=== PATIENT | female | born 1970 | race Caucasian/White ===

== ENCOUNTER 2023-01-06 10:27 | Outpatient (OUT) | payer MEDICAID, SELFPAY ==
--- NOTE | 2023-01-06 10:38 | XR_ITS ---
The [address] [address] Patient Name: REMI CARMICHAEL MRN: [id number] date: 1970 Sex: F Assigned Patient Location: RAD Current Patient Location: RAD Accession/Order Number: [id number] Exam Date: 01/06/2023 10:48 Report Date: 01/06/2023 12:28 At the request of: MARY JACOBS Procedure: XR knee RT 3V PROCEDURE: XR knee RT 3V HISTORY: Acute pain of right knee M25.561 after falling COMPARISON: None. FINDINGS: BONES:Mild narrowing of the medial compartment. Small periarticular degenerative osteophytes involving the anterior and lateral compartments. No fracture, dislocation, or bone lesion. SOFT TISSUES:No visible soft tissue swelling. EFFUSION:None visible. OTHER: Negative. XR/XR knee RT 3V IMPRESSION: 1. No acute bone abnormality. 2. Mild degenerative joint disease. Electronically authenticated by: PAVITHRA ADAM Date: 01/06/2023 12:28
== END 2023-01-06 10:28 | disposition home or self-care (01) ==
LOC: LAB 10:32 → RAD 10:35
PROVIDERS: PCP Internal Medicine; Visit Provider Internal Medicine
DX: M25.561 Pain in right knee (principal)
CPT/HCPCS: 73562

== ENCOUNTER 2023-06-01 08:10 | Emergency (ER) | payer MEDICAID, SELFPAY ==
[2023-06-01 08:17] VITALS: BP 176/98; PULSE 80; RESP 18; TEMP 36.8; O2SAT 96; BMI 36.6
[2023-06-01] MEDS: PREDNISONE 20 MG TABLET 40 MG PO (08:47)
[2023-06-01] MEDS: IPRATROPIUM/ALBUTEROL SULFATE 3 ML AMPUL.NEB IH (08:50)
[2023-06-01 08:51] VITALS: PULSE 97; O2SAT 97
--- NOTE | 2023-06-01 09:01 | ED.GENADUL1 ---
HPI - General Adult General Chief complaint: Upper Respiratory Infection Stated complaint: URTI Time Seen by Provider: 06/01/23 08:15 Source: patient Mode of arrival: walk-in Limitations: no limitations History of Present Illness HPI narrative: The patient have past medical history of COPD coming to the ER with a 3 to 4-day history of runny nose associated with sore throat as well as cough and shortness of breath on exertion, the patient denies any chest pain nausea vomiting or any other complaint. She mentioned that she had been exposed to one of her family member that had similar symptoms and she came here because she works with the [employer] population and she did not go for the working for the last 2 days. The patient mentioned that she needs a work excuse. The patient does have a cough productive of whitish sputum no nausea no vomiting no fever no chills Related Data Previous Rx's Medication Instructions Recorded azithromycin 250 mg tablet See Rx Instructions PO .COMPLEX #6 06/01/23 (Zithromax Z-Efrem) tabs guaifenesin 600 mg tablet, 600 mg PO BID PRN cough #10 tabs 06/01/23 extended release 12 hr (Mucinex) prednisone 20 mg tablet 40 mg (2 x 20 mg) PO DAILY 5 days 06/01/23 #10 tabs Allergies Allergy/AdvReac Type Severity Reaction Status Date / Time No Known Drug Allergies Allergy Verified 06/01/23 08:17 Review of Systems ROS Status of ROS 10 or more systems reviewed and unremarkable except as noted in history and below PFSH PFS Social History Smoking status: Current every day smoker Exam Narrative Exam Narrative: Nurses notes and vital signs reviewed and patient is not hypoxic. General: Well-appearing and in no apparent distress. Skin: Warm, dry, no pallor noted. No rash. Head: Normocephalic, atraumatic. Neck: Supple, non-tender. Eye: Pupils are equal, round and EOMI. No scleral icterus. Ears, Nose, Mouth, and Throat: Tonsillar erythema noted in addition to congested nasal mucosa. uvula is mid-line Cardiovascular: Regular Rate and Rhythm without murmur, gallop or rub. Respiratory: No accessory muscle use or respiratory distress. Lungs diminished air entry bilaterally, distant breathing sounds Chest Wall: no tenderness Back: No midline thoracic or lumbar vertebral tenderness. No CVA tenderness Musculoskeletal: normal ROM, no calf or popliteal tenderness, no lower extremity edema/swelling GI: Abdomen is soft, non-distended. Normal bowel sounds. No masses appreciated. No tenderness to palpation. No rebound, guarding, or rigidity noted. Neurological: A&O x4. No cranial nerve dysfunction observed. No truncal ataxia. Moves all extremities. Sensation intact. Psychiatric: Cooperative and interactive. Normal mood and affect. Constitutional Vital Signs, click to edit/add: Last Vital Signs Temp 98.3 F 06/01/23 08:17 Pulse 97 H 06/01/23 08:51 Resp 18 06/01/23 08:17 BP 176/98 H 06/01/23 08:17 Pulse Ox 97 06/01/23 08:51 O2 Del Method Room Air 06/01/23 08:51 Course Vital Signs Vital signs: Vital Signs Temperature 98.3 F 06/01/23 08:17 Pulse Rate 80 06/01/23 08:17 Respiratory Rate 18 06/01/23 08:17 Blood Pressure 176/98 H 06/01/23 08:17 Pulse Oximetry 96 06/01/23 08:17 Oxygen Delivery Method Room Air 06/01/23 08:17 Temperature 98.3 F 06/01/23 08:17 Pulse Rate 97 H 06/01/23 08:51 Respiratory Rate 18 06/01/23 08:17 Blood Pressure 176/98 H 06/01/23 08:17 Pulse Oximetry 97 06/01/23 08:51 Oxygen Delivery Method Room Air 06/01/23 08:51 Medical Decision Making [facility] Narrative Medical decision making narrative: The patient presenting to us with a upper respiratory tract infection symptoms in addition to possible exacerbation of her COPD she did mention that she smokes 1 pack and a half of cigarettes daily and I did explain the harmful effect on her health. The patient will be treated with prednisone in addition to Mucinex and Z-Efrem for COPD exacerbation mostly secondary to viral infection. The patient is to follow up with primary care physician in next 2-3 days or to return to the emergency department should any of the signs or symptoms worsen or new symptoms develop. The patient agrees with the following Diagnosis and Treatment plan and the patient will be discharged home. Discharge Plan Discharge Chief Complaint: Upper Respiratory Infection Clinical Impression: COPD with exacerbation Patient Disposition: Home, Self-Care Time of Disposition Decision: 08:57 Condition: Good Mode of Transportation: Private Vehicle Prescriptions / Home Meds: New prednisone 20 mg tablet 40 mg PO DAILY 5 Days Qty: 10 0RF azithromycin [Zithromax Z-Efrem] 250 mg tablet See Rx Instructions .ROUTE .COMPLEX Qty: 6 0RF Rx Instructions: For 250 mg dose pack: take 500 mg today (day 1), then 250 mg for 4 days (days 2-5) guaifenesin [Mucinex] 600 mg tablet extended release 12hr 600 mg PO BID PRN (Reason: cough) Qty: 10 0RF Instructions: COPD (Chronic Obstructive Pulmonary Disease) (DC) Stand Alone Forms: Portal Instructions Referrals: MARY JACOBS [Primary Care Provider] - 1 week
== END 2023-06-01 09:26 | disposition home or self-care (01) ==
PROVIDERS: Emergency Provider Emergency Medicine; PCP Internal Medicine
DX: J44.1 Chronic obstructive pulmonary disease with (acute) exacerbation (principal); F17.210 Nicotine dependence, cigarettes, uncomplicated
CPT/HCPCS: 94640; 99283; J7512

== ENCOUNTER 2023-06-10 18:51 | Emergency (ER) | payer MEDICAID, SELFPAY ==
--- OUTSIDE RECORDS SUMMARY | 2023-06-10 18:55 | XMS_ITS | CCD ---
Author Name Unknown Address [address] [place] [address] Organization [facility] Care Team Providers Care Grain Sampler Name Role Phone RONALD ., DR HARDIN Consulting Unavailable REYNALDO, DR HERNANDEZ Primary Care Unavailable RONALD Hayden, DR HARDIN Admitting Unavailable RONALD ., DR HARDIN Attending Unavailable RICO ., MR ADAMES Consulting Unavailable REYNALDO, DR HERNANDEZ Primary Care Unavailable KAI BAKER Admitting Unavailable KAI BAKER Attending Unavailable KAI BAKER Consulting Unavailable RILEY SMITH Consulting Unavailable LUCIANO ., NORMA Admitting Unavailable REYNALDO, DR HERNANDEZ Primary Care Unavailable LUCIANO ., NORMA Attending Unavailable LUCIANO ., NORMA Consulting Unavailable Problems Active Problems Problem Classification Problem Date Documented Da te Episodic/Chronic Anxiety disorders (1 source) Generalized anxiety disorder; Translations: [GENERALIZED ANXIETY DISORDER] Onset: 09-21-2022 Chronic Asthma (2 sources) Unspecified asthma, uncomplicated; Translations: [UNSPECIFIED ASTHMA UNCOMPLICATED] Onset: 05-04-2022 Chronic Disorders of teeth and jaw (4 sources) Other specified disorders of teeth and supporting structures; Translations: [Dental caries, unspecified] Onset: 09-20-2022 Episodic Mood disorders (1 source) Mood disorders; Translations: [DEPRESSION UNSPECIFIED] Onset: 09-21-2022 Other aftercare (1 source) Other snf (current) drug therapy; Translations: [OTH ASTROCHEMIST CURRENT DRUG THERAPY] Onset: 09-21-2022 Episodic Other injuries and conditions due to external causes (4 sources) Unspecified injury of head, initial encounter; Translations: [UNSPECIFIED INJURY HEAD INITIAL ENC] Onset: 07-20-2022 Episodic Other upper respiratory disease (1 source) Epistaxis; Translations: [EPISTAXIS] Onset: 07-26-2022 Episodic Substance-related disorders (1 source) Nicotine dependence, cigarettes, uncomplicated; Translations: [NICOTINE DEPEND CIGARETTES UNCOMP] Onset: 09-21-2022 Chronic Unclassified (2 sources) COUGH, UNSPECIFIED; Translations: [COUGH, UNSPECIFIED] Onset: 05-04-2022 Unclassified (1 source) CONTACT W/AND (SUSP) EXPOS COVID-19; Translations: [CONTACT W/AND (SUSP) EXPOS COVID-19] Onset: 05-04-2022 Past or Other Problems Problem Classification Problem Date Documented Da te Episodic/Chronic Other upper respiratory infections (1 source) Acute upper respiratory infection, unspecified; Translations: [ACUTE UP RESPIRATORY INFECTION UNS] Onset: 05-04-2022 Episodic Unclassified (1 source) COUGH, UNSPECIFIED; Translations: [COUGH, UNSPECIFIED] Onset: 04-29-2022 Results Test Name Value Interpretation Reference Range Facil ity CT FACIAL BONES WO CONon CT FACIAL BONES WO CON EXAMINATION: CT HEAD WO CON, CT FACIAL BONES WO CON HISTORY: Closed injury of head and face. History of fall. COMPARISON: None. TECHNIQUE: CT examination of the head and face without IV contrast. Dose reduction techniques were achieved by using automated exposure control and/or adjustment of mA and/or kV according to patient size and/or use of iterative reconstruction technique. Findings: No acute maxillofacial fracture or malalignment. The paranasal sinuses and mastoid air cells are well aerated. No air-fluid levels. No depressed or calvarial fracture. No extra-axial fluid collection. No intra-axial or extra-axial bleed. No mass effect or midline shift. The beasley-white matter differentiation is preserved. The brain parenchymal volume is age appropriate. The ventricles are nondilated. The basal cisterns are patent. The craniovertebral junction is unremarkable. IMPRESSION: 1. No acute maxillofacial fracture or malalignment. 2. No depressed or calvarial fracture. 3. No acute intracranial bleed. Electronically authenticated by: RILEY SMITH Date: 2022-07-20 14:48 Normal [facility] Covid-19 PCR (CVDTB)on 04-09 SARS-CoV-2 (COVID-19) RNA ZAINAB+probe Ql (Unsp spec) Not detected Normal NOT DETECTED [facility] Comment on above: Result Comment: When diagnostic testing is negative, the possibility of a false negative should be considered in the context of a patient's recent exposures and the presence of clinical signs and symptoms consistent with SARS-CoV-2. This test is not yet approved or cleared by the [place] FDA. When there are no FDA-approved or cleared tests available, and other criteria are met, FDA can make tests available under an emergency access mechanism called an Emergency Use Authorization (EUA). The EUA for this test is supported by the [employer] Service's declaration that circumstances exist to justify the emergency use of in vitro diagnostics for the detection and/or diagnosis of the virus that causes COVID-19. This EUA will remain in effect for the duration of the COVID-19 declaration justifying emergency of IVDs, unless it is terminated or revoked by the FDA (after which the test may no longer be used). Performed By: #### C VDTB #### [facility] [address] [place] [address] Dr. Sukhdeep Mendez INFLUENZA A AND B AGon 04-29 INFLUBNEGH SEE BELOW Normal [facility] Comment on above: Result Comment: Nega tive for Flu B protein antigen. Infection due to Flu B cannot be ruled out. Flu B antigen in the sample may be below the detection limit of the test. Performed By: #### I NFLUAB #### [facility] [address] [place] [address] Dr. Sukhdeep Mendez INFLUENZA A AG Negative Normal NEGATIVE SEE COMMENT [facility] Comment on above: Performed By: #### I NFLUAB #### [facility] [address] [place] [address] Dr. Sukhdeep Mendez INFLUENZA B AG Negative Normal NEGATIVE SEE COMMENT [facility] Comment on above: Performed By: #### I NFLUAB #### [facility] [address] [place] [address] Dr. Sukhdeep Mendez INFLUPOSH SEE BELOW Normal [facility] Comment on above: Result Comment: NOTE : Live attenuated influenzae vaccine viruses can cause a positive result for a rapid influenza diagnostic test if administered up to 7 days prior to rapid testing. Performed By: #### I NFLUAB #### [facility] [address], [place] [address] Dr. Sukhdeep Mendez INTERNAL CONTROLS Within Normal Limits Normal Wi thin Normal Limits [facility] Comment on above: Performed By: #### I NFLUAB #### [facility] [address], [place] [address] Dr. Sukhdeep Mendez Consultation Noteon 10-16-19 Consultation Note [id number] 0CD:127 Normal [facility] Consultation Note [id number] 0CD:127 Normal [facility] Consultation Noteon 10-12-19 Consultation Note [id number] CD:127 Normal [facility] RAD - MISCon 10-03-2019 RAD - MISC [id number] 0CD:127 Normal [facility] Encounters Encounter Date Encounter Type Care Provider Facility Start: 09-20-2022 End: 09-20-2022 ambulatory NORMA WOLF . Facility:[facility] Start: 07-20-2022 End: 07-21-[address] MARY JACOBS Facility:[facility] Start: 04-29-2022 End: 04-29-[address] LASHAWN CARDENAS . Facility:[facility] Payers Date Payer Category Payer Medicaid [id number] 1970 Unknown [id number] .[id number] 1970 Unknown [id number] 1970 Unknown [id number] .[id number] [id number] 1960 Unknown [id number] 1960 Unknown [id number] Summary Purpose Family History No Family History Records FoundNo Family History Records Found Advance Directives No Advanced Directives Records FoundNo Advanced Directives Records Found Additional Source Comments INFORMATION SOURCE (unrecogn ized section and content) DATE CREATED AUTHOR 12/01/[address] [facility] DATE CREATED AUTHOR AUTHOR'S SOMMER ATRICHI 09/22/2022 Virginie herrera FOR RECORDS PERTAINING TO PATIENTS WHO ARE OR HAVE BEEN ENROLLED IN A CHEMICAL DEPENDENCY/SUBSTANCEABUSE PROGRAM, SOME INFORMATION MAY BE OMITTED. This clinical summary was aggregated from multiple sources. Caution should be exercised in using it in the provision of clinical care. This summary normalizes information from multiple sources, and as a consequence, information in this document may materially change the coding, format and clinical context of patient data. In addition, data may be omitted in some cases. CLINICAL DECISIONS SHOULD BE BASED ON THE PRIMARY CLINICAL RECORDS. [employer] provides no warranty or guarantee of the accuracy or completeness of information in this document.
[2023-06-10 18:56] VITALS: BP 153/81; PULSE 76; RESP 20; TEMP 36.6; O2SAT 98; BMI 36.6
--- NOTE | 2023-06-10 19:10 | CT_ITS ---
[address] [address] Patient Name: REMI CARMICHAEL MRN: [id number] date: 1970 Sex: F Assigned Patient Location: ER Current Patient Location: ER Accession/Order Number: [id number] Exam Date: 06/10/2023 19:48 Report Date: 06/10/2023 20:31 At the request of: MICHELE JOHNSON Procedure: CT abdomen pelvis wo con EXAM: CT abdomen pelvis wo con REASON FOR EXAM: Female, 52 years, flank pain. TECHNIQUE: Computed tomography of the abdomen and pelvis is performed in the axial projection from the lung bases to the pubic symphysis. Sagittal and coronal reconstructed images are performed. Dose reduction techniques were achieved by using automated exposure control and/or adjustment of mA and/or KVP according to patient size and/or use of iterative reconstruction technique. Study was performed without IV contrast. Study was performed without oral contrast. COMPARISON: 10/02/2019 FINDINGS: Lung bases: There is minimal linear scarring at the left lung base. There is no pleural effusion. The visualized portions of the heart are unremarkable. Evaluation of the solid abdominal organs is limited in the absence of intravenous contrast. Liver: There is diffuse decreased attenuation throughout the liver consistent with steatosis. The liver is enlarged. Gallbladder: The gallbladder has been removed. 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 Pancreas: The pancreas is normal. Adrenal glands: The adrenal glands are normal bilaterally. Right kidney: The kidney is normal in size. There is no renal calculus or hydronephrosis. Left kidney: The kidney is normal in size. There is no renal calculus or hydronephrosis. Stomach: The stomach is normal. Small bowel: There is no small bowel obstruction. A small portion of small bowel protrudes through the anterior ventral hernia. Large bowel: The colon is normal. Appendix: The appendix is visualized, and is normal. Aorta: The aorta is normal. IVC: The IVC is normal. Retroperitoneum: Normal retroperitoneum. Bladder: The bladder is normal. Pelvic organs: Normal uterus. Small cyst superior to the uterus may be ovarian in origin, measuring approximately 3 cm in diameter. Abdominal wall: There is an umbilical hernia, which contains a nonobstructed small bowel loop. Osseous structures: Degenerative changes are seen in the visualized spine. A vertebral body hemangioma is noted at L5. CT/CT abdomen pelvis wo con IMPRESSION: Hepatic steatosis and hepatomegaly. No bowel obstruction or acute renal pathology. There is a small portion of small bowel which protrudes through the ventral midline hernia, but there is no evidence for obstruction. Additional nonacute findings, as described above. Electronically authenticated by: RON MCHUGH Date: 06/10/2023 20:31
[2023-06-10 19:25] LABS: Hematocrit 42.6 % (36.0-48.0); Hemoglobin 13.9 g/dL (12.0-16.0); Mean Corpuscular HGB Conc 32.6 g/dL (29.9-35.2); Mean Corpuscular Hemoglobin 28.9 pg (26.7-34.0); Mean Corpuscular Volume 88.6 fL (81.0-99.0); Mean Platelet Volume 10.8 fL (9.5-13.5); Platelet Count 478 10^3/uL (150-450); Red Blood Count 4.81 10^6/uL (4.20-5.40); Red Cell Distribution Width 14.4 % (11.0-15.0); White Blood Count 19.2 10^3/uL (4.0-11.0)
--- NOTE | 2023-06-10 19:25 | ED.GENADUL1 ---
HPI - General Adult General Chief complaint: Abdominal Pain Stated complaint: Flank Pain Time Seen by Provider: 06/10/23 18:57 Source: patient Mode of arrival: walk-in Limitations: no limitations History of Present Illness HPI narrative: 52-year-old female presents her chief complaint of right flank pain. She states she felt a stabbing pain to her right this posterior kidney earlier today cough and states it felt like her kidney splint. She denies any history of kidney stones. She had no cough or congestion. She is alert and oriented no acute distress. Vital signs are stable. She denies any difficulty urinating. Denies known history of . Denies any difficulty with urination or nausea vomit. Related Data Home Medications Medication Instructions Recorded Confirmed baclofen 10 mg tablet 10 mg PO DAILY 06/10/23 06/10/23 diclofenac sodium 50 mg 50 mg PO BID 06/10/23 06/10/23 tablet,delayed release tizanidine 4 mg tablet 4 mg PO BID 06/10/23 06/10/23 Allergies Allergy/AdvReac Type Severity Reaction Status Date / Time No Known Drug Allergies Allergy Verified 06/01/23 08:17 Review of Systems ROS Narrative All Systems are negative except as noted/marked.All systems reviewed and otherwise negative PFSH PFSH Social History Smoking status: Current every day smoker Exam Narrative Exam Narrative: Nurses note and vital signs reviewed and patient is not hypoxic. General: The patient appears well and in no apparent distress. Patient is resting comfortably on cart. Skin: Warm, dry, no pallor noted. There is no rash noted. Head: Normocephalic, atraumatic Eye: Normal conjunctiva, no drainage, EOMI. PERRL Ears, Nose, Mouth, and Throat: oral mucosa is moist. Nares patent. Mouth without vesicles. Ear canals patent. Tm's without Erythema Cardiovascular: Regular Rate and Rhythm Respiratory: Patient is in no distress, no accessory muscle use, lungs are clear to auscultation, no wheezing, rales or rhonchi Back: Right flank tenderness on exam, non-tender, no CVA tenderness on left to percussion. GI: Normal bowel sounds, no tenderness to palpation, no masses appreciated. No rebound, guarding, or rigidity noted. Musculoskeletal: The patient has no evidence of calf tenderness, no pitting edema, symmetrical pulses noted bilaterally Neurological: A&O x4, normal speech Psychiatric: Cooperative Constitutional Vital Signs, click to edit/add: Last Vital Signs Temp 97.9 F 06/10/23 18:56 Pulse 71 06/10/23 20:10 Resp 20 06/10/23 18:56 BP 138/77 06/10/23 20:10 Pulse Ox 97 06/10/23 20:10 O2 Del Method Room Air 06/10/23 18:56 Course Vital Signs Vital signs: Vital Signs Temperature 97.9 F 06/10/23 18:56 Pulse Rate 76 06/10/23 18:56 Respiratory Rate 20 06/10/23 18:56 Blood Pressure 153/81 H 06/10/23 18:56 Pulse Oximetry 98 06/10/23 18:56 Oxygen Delivery Method Room Air 06/10/23 18:56 Temperature 97.9 F 06/10/23 18:56 Pulse Rate 71 06/10/23 20:10 Respiratory Rate 20 06/10/23 18:56 Blood Pressure 138/77 06/10/23 20:10 Pulse Oximetry 97 06/10/23 20:10 Oxygen Delivery Method Room Air 06/10/23 18:56 Medical Decision Making [facility] Narrative Medical decision making narrative: Patient presented here chief complaint right-sided flank pain and pain strong systolic her kidney was splitting. CT scan was performed showed no acute evidence of abnormality.. Patient did have an elevated white cell count of nineteen thousand CBC BMP was otherwise unremarkable. Patient states she had just finished a course of steroids yesterday. Remainder of exam is unremarkable. Patient had been medicated here with Toradol states her pain is completely gone. The patient really discharged home diagnosis of back pain Differential Diagnosis Differential Diagnosis: Urinary tract infection, kidney stone, pneumonia Medical Records Medical records reviewed: Yes I reviewed the patient's medical records Lab Data Lab results reviewed: Yes I reviewed the patient's lab results Labs: Lab Results 06/10/23 Range/Units 19:07 WBC 19.2 H (4.0-11.0) 10^3/uL RBC 4.81 (4.20-5.40) 10^6/uL Hgb 13.9 (12.0-16.0) g/dL Hct 42.6 (36.0-48.0) % MCV 88.6 (81.0-99.0) fL MCH 28.9 (26.7-34.0) pg MCHC 32.6 (29.9-35.2) g/dL RDW 14.4 (11.0-15.0) % Plt Count 478 H (150-450) 10^3/uL MPV 10.8 (9.5-13.5) fL Seg Neuts % (Manual) 42.0 Lymphocytes % (Manual) 28.0 (20.5-60.0) % Atypical Lymphs % (Man) 12.0 % Monocytes % (Manual) 9.0 (1.7-12.0) % Eosinophils % (Manual) 9.0 H (0.9-7.0) % Basophils % (Manual) 0.0 L (0.2-2.0) % Neutrophils # (Manual) 8.06 H (1.4-6.5) 10^3/uL Lymphocytes # (Manual) 5.37 H (1.20-3.80) 10^3/uL Abs Atypical Lymphs Man 2.30 Monocytes # (Manual) 1.72 H (0.30-0.80) 10^3/uL Eosinophils # (Manual) 1.72 H (0.00-0.70) 10^3/uL Basophils # (Manual) 0.00 (0.00-0.10) 10^3/uL Sodium 139 (136-145) mmol/L Potassium 4.5 (3.5-5.1) mmol/L Chloride 103 (98-107) mmol/L Carbon Dioxide 27.8 (21.0-32.0) mmol/L Anion Gap 12.7 BUN 10.0 (7.0-18.0) mg/dL Creatinine 0.61 (0.55-1.02) mg/dL Est GFR ( Amer) >60 (>=60) Est GFR (Non-Af Amer) >60 (>=60) BUN/Creatinine Ratio 16.4 Glucose 83 (74-106) mg/dL Calcium 9.2 (8.5-10.1) mg/dL Total Bilirubin 0.5 (0.2-1.0) mg/dL AST 27 (15-37) U/L ALT 40 (14-59) U/L Alkaline Phosphatase 98 (46-116) U/L Total Protein 7.4 (6.4-8.2) g/dL Albumin 3.3 L (3.4-5.0) g/dL Globulin 4.1 g/dL Albumin/Globulin Ratio 0.8 Urine Color Yellow (YELLOW) Urine Clarity Clear (CLEAR) Urine pH 7.0 (5.0-9.0) Ur Specific [place] 1.020 (1.005-1.025) Urine Protein Negative (NEG/TRACE) mg/dL Urine Glucose (UA) Negative (NEGATIVE) mg/dL Urine Ketones Negative (NEGATIVE) mg/dL Urine Occult Blood Negative (NEGATIVE) Urine Nitrite Negative (NEGATIVE) Urine Bilirubin Negative (NEGATIVE) Urine Urobilinogen 0.2 (0.2-1.0) EU/dL Ur Leukocyte Esterase Negative (NEGATIVE) Urine RBC 0-2 (0-2) #/HPF Urine WBC None seen (NONE SEEN) #/HPF Ur Squamous Epith Cells None seen (NONE/RARE) #/LPF Urine Crystals None seen (None Seen) #/HPF Urine Bacteria None seen (NONE SEEN) #/HPF Urine Casts None seen (NONE SEEN) #/LPF Urine Mucus None seen (NONE SEEN) Urine HCG, Qual Negative (NEGATIVE) Imaging Data Chest x-ray: Radiologist's impression: ITS Impressions Abdomen/Pelvis CT 06/10/23 19:10 IMPRESSION: Hepatic steatosis and hepatomegaly. No bowel obstruction or acute renal pathology. There is a small portion of small bowel which protrudes through the ventral midline hernia, but there is no evidence for obstruction. Additional nonacute findings, as described above. Electronically authenticated by: RON MCHUGH Date: 06/10/2023 20:31 Discharge Plan Discharge Chief Complaint: Abdominal Pain Clinical Impression: Back pain Patient Disposition: Home, Self-Care Time of Disposition Decision: 20:40 Condition: Good Prescriptions / Home Meds: No Action baclofen 10 mg tablet 10 mg PO DAILY tizanidine 4 mg tablet 4 mg PO BID diclofenac sodium 50 mg tablet,delayed release (DR/EC) 50 mg PO BID Instructions: Acute Low Back Pain (ED), Back Pain (ED) Stand Alone Forms: Portal Instructions Referrals: MARY JACOBS [Primary Care Provider] - 1 week
[2023-06-10 19:26] LABS: Bilirubin Urine NEGATIVE (NEGATIVE); Blood Urine NEGATIVE (NEGATIVE); Clarity Urine CLEAR (CLEAR); Color Urine YELLOW (YELLOW); Glucose Urine UA NEGATIVE (NEGATIVE); Ketones Urine NEGATIVE (NEGATIVE); Leukocyte Esterase Urine NEGATIVE (NEGATIVE); Nitrite Urine NEGATIVE (NEGATIVE); Protein Urine NEGATIVE (NEG/TRACE); Urobilinogen Urine 0.2 EU/dL (0.2-1.0)
[2023-06-10] MEDS: 0.9 % SODIUM CHLORIDE 1,000 ML 999 ML IV (19:26)
[2023-06-10] MEDS: KETOROLAC TROMETHAMINE 30 MG/ML VIAL IVP (19:26)
[2023-06-10 19:29] LABS: HCG Qualitative Urine* NEGATIVE (NEGATIVE)
--- NOTE | 2023-06-10 19:36 | XR_ITS ---
[facility] [place] [id number] Patient Name: REMI CARMICHAEL MRN: [id number] date: 1970 Sex: F Assigned Patient Location: ER Current Patient Location: Accession/Order Number: [id number] Exam Date: 06/10/2023 19:42 Report Date: 06/10/2023 21:20 At the request of: MICHELE JOHNSON Procedure: XR chest 2V TWO-VIEW CHEST RADIOGRAPH, 06/10/2023 7:42 PM EST: COMPARISON: Chest, 09/25/2017. CLINICAL HISTORY: cough with history of smoking and history of known hernia, region unknown. FINDINGS: Patient is slightly rotated to the left accentuating cardiomediastinal silhouettes left of midline. No acute cardiopulmonary disease. No pulmonary edema, pneumothorax, or pleural effusion. Normal heart size. No acute osseous abnormality. Degenerative changes of the mid to lower thoracic spine. XR/XR chest 2V IMPRESSION: No acute abnormality identified. Electronically authenticated by: Syed WATTERS Date: 06/10/2023 21:20
[2023-06-10 19:42] LABS: Bacteria Urine NONE SEEN #/HPF (NONE SEEN); Cast Seen? NONE SEEN #/LPF (NONE SEEN); Crystals Seen? None Seen #/HPF (None Seen); Mucus Urine NONE SEEN (NONE SEEN); RBC Urine 0-2 #/HPF (0-2); Squamous Epithelial Cell Urine NONE SEEN #/LPF (NONE/RARE); WBC Urine NONE SEEN #/HPF (NONE SEEN)
[2023-06-10 19:46] LABS: Alanine Aminotransferase 40 U/L (14-59); Albumin Globulin Ratio 0.8; Albumin Level 3.3 g/dL (3.4-5.0); Alkaline Phosphatase 98 U/L (46-116); Anion Gap 12.7; Aspartate Amino Transferase 27 U/L (15-37); BUN Creatinine Ratio 16.4; Bilirubin Total 0.5 mg/dL (0.2-1.0); Calcium 9.2 mg/dL (8.5-10.1); Carbon Dioxide 27.8 mmol/L (21.0-32.0); Chloride 103 mmol/L (98-107); Estimated GFR (African America >60 (>=60); Estimated GFR (Non-African Ame >60 (>=60); Globulin 4.1 g/dL; Glucose 83 mg/dL (74-106); Potassium 4.5 mmol/L (3.5-5.1); Sodium 139 mmol/L (136-145); Total Protein 7.4 g/dL (6.4-8.2)
[2023-06-10 20:08] LABS: Eosinophils Absolute Manual 1.72 10^3/uL (0.00-0.70); Lymphocytes Absolute Manual 5.37 10^3/uL (1.20-3.80); Monocytes Absolute Manual 1.72 10^3/uL (0.30-0.80); Segmented Neut Absolute Manual 8.06 10^3/uL (1.4-6.5)
[2023-06-10 20:10] VITALS: BP 138/77; PULSE 71; O2SAT 97
[2023-06-10 20:51] VITALS: BP 133/87; PULSE 71; O2SAT 98
== END 2023-06-10 20:53 | disposition home or self-care (01) ==
PROVIDERS: Physician Assistant; Emergency Provider Emergency Medicine Emergency Medical Services; PCP Internal Medicine
DX: M54.9 Dorsalgia, unspecified (principal); F17.210 Nicotine dependence, cigarettes, uncomplicated; Z79.899 Other long term (current) drug therapy
CPT/HCPCS: 36415; 71046; 74176; 80053; 81001; 84703; 85007; 85027; 96374; 99285; J1885